=== PATIENT | female | born 1980 | race Caucasian/White ===

== ENCOUNTER 2019-06-17 09:49 | Outpatient (CLI) | payer OTHER ==
--- NOTE | 2019-06-17 11:07 | RAD ---
TWO VIEWS CHEST: COMPARISON: None. HISTORY: Cough. FINDINGS: Two views of the chest show normal sized cardiomediastinal silhouette. There is no evidence of consol idation, mass, or pleural effusion. The bones are unremarkable. IMPRESSION: No evidence of acute cardiopulmonary disease. POS: C
== END 2019-06-17 09:50 | disposition home or self-care (01) ==
LOC: RAD-FRANK 09:49
PROVIDERS: ATTEND Nurse Practitioner Family
DX: J20.9 Acute bronchitis, unspecified (principal)
CPT/HCPCS: 71046